=== PATIENT | male | born 1950 | race Caucasian/White ===

== ENCOUNTER → 2021-08-12 | Outpatient (CLI) | payer OTHER | LOC: HEART CORB 13:02 | DX: R94.31 Abnormal electrocardiogram [ECG] [EKG] (principal); I49.3 Ventricular premature depolarization ==

== ENCOUNTER → 2021-08-19 | Outpatient (CLI) | payer OTHER | LOC: HEART CORB 11:00 | DX: R94.31 Abnormal electrocardiogram [ECG] [EKG] (principal); I10 Essential (primary) hypertension; I49.3 Ventricular premature depolarization; R06.02 Shortness of breath; I08.8 Other rheumatic multiple valve diseases | CPT/HCPCS: 93306 ==